=== PATIENT | female | born 1950 | race Caucasian/White ===

== ENCOUNTER 2017-06-18 20:22 | Emergency (ER) | payer MEDICARE, OTHER ==
[~2017-06-18] VITALS: Ht 157.5 cm; Wt 65.8 kg
--- NOTE | 2017-06-18 20:34 | ED General ---
General Stated Complaint: NAUSEA Source of Information: Patient Exam Limitations: No Limitations History of Present Illness Time Seen by Provider: 20:33 Initial Comments To ER on a road trip from [facility] to [facility]. She started this trip today feeling fine. EMS was returning from a transfer following this lady and noticed her to be swerving. She eventually pullled over and and paramedics checked her out and found her to be febrile at 101.9, tachycardic at 115, complaining of a severe headache, nausea, nasal congestion, cough, and sore throat. They then transported her here. She is otherwise healthy except for hypertension. She is about half way thru a course of Augmentin 875 for sinusitis and has not felt bad until this afternoon when she had a sudden onset of worsening of symptoms--nasal congestion, high fever, sore throat. . She did receive an influenza vaccine this year. Severity: Moderate Associated Systoms: Cough, Fever/Chills, Headaches Allergies and Home Medications Allergies Coded Allergies: No Known Drug Allergies (Unverified , 06/18/17) Constitutional: see HPI, chills, fever EENTM: see HPI, throat pain Respiratory: see HPI, cough Cardiovascular: no symptoms reported Genitourinary: no symptoms reported Musculoskeletal: no symptoms reported Skin: no symptoms reported Psychiatric/Neurological: See HPI, Headache Hematologic/Lymphatic: No Symptoms Reported Physical Exam Vital Signs Vital Sign - Last 12Hours 06/18/17 20:22 Temp 100.7 Pulse 110 Resp 20 B/P (MAP) 171/93 (119) Pulse Ox 99 O2 Delivery Room Air Capillary Refill : General Appearance: No Apparent Distress, WD/WN Eyes: Bilateral Eye Normal Inspection, Bilateral Eye PERRL, Bilateral Eye EOMI HEENT: PERRL/EOMI, TMs Normal, Normal ENT Inspection, Pharynx Normal Neck: Full Range of Motion, Normal Inspection Respiratory: Normal Breath Sounds, No Accessory Muscle Use, No Respiratory Distress Cardiovascular: Normal Peripheral Pulses, Tachycardia Gastrointestinal: Normal Bowel Sounds, Non Tender, Soft Extremity: Normal Capillary Refill, Normal Inspection Neurologic/Psychiatric: Alert, Oriented x3, No Motor/Sensory Deficits Skin: Normal Color, Warm/Dry Focused Exam Evaluation Lactate Level Laboratory Tests 06/18/17 20:29: Lactic Acid Level 0.91 Lactic Acid Level Laboratory Tests Test 06/18/17 20:29 Lactic Acid Level 0.91 MMOL/L (0.50-2.00) Progress/Results/Core Measures Suspected Sepsis SIRS Temperature: Pulse: Respiratory Rate: Laboratory Tests 06/18/17 20:29: White Blood Count 6.1 Blood Pressure / Mean: Laboratory Tests 06/18/17 20:29: Lactic Acid Level 0.91 Laboratory Tests 06/18/17 20:29: Creatinine 0.94, Platelet Count 172, Total Bilirubin 0.3 Results/Orders Lab Results Laboratory Tests Test 06/18/17 20:29 06/18/17 21:27 Range/Units White Blood Count 6.1 4.3-11.0 10^3/uL Red Blood Count 3.62 L 4.35-5.85 10^6/uL Hemoglobin 11.6 11.5-16.0 G/DL Hematocrit 34 L 35-52 % Mean Corpuscular Volume 93 80-99 FL Mean Corpuscular Hemoglobin 32 25-34 PG Mean Corpuscular Hemoglobin Concent 34 32-36 G/DL Red Cell Distribution Width 12.6 10.0-14.5 % Platelet Count 172 130-400 10^3/uL Mean Platelet Volume 10.2 7.4-10.4 FL Neutrophils (%) (Auto) 68 42-75 % Lymphocytes (%) (Auto) 6 L 12-44 % Monocytes (%) (Auto) 21 H 0-12 % Eosinophils (%) (Auto) 4 0-10 % Basophils (%) (Auto) 0 0-10 % Neutrophils # (Auto) 4.2 1.8-7.8 X 10^3 Lymphocytes # (Auto) 0.4 L 1.0-4.0 X 10^3 Monocytes # (Auto) 1.3 H 0.0-1.0 X 10^3 Eosinophils # (Auto) 0.2 0.0-0.3 10^3/uL Basophils # (Auto) 0.0 0.0-0.1 10^3/uL Neutrophils % (Manual) 64 % Lymphocytes % (Manual) 18 % Monocytes % (Manual) 3 % Eosinophils % (Manual) 9 % Basophils % (Manual) 2 % Band Neutrophils 0 % Reactive Lymphocytes 4 % Blood Morphology Comment NORMAL Sodium Level 136 135-145 MMOL/L Potassium Level 3.6 3.6-5.0 MMOL/L Chloride Level 102 98-107 MMOL/L Carbon Dioxide Level 24 21-32 MMOL/L Anion Gap 10 5-14 MMOL/L Blood Urea Nitrogen 14 7-18 MG/DL Creatinine 0.94 0.60-1.30 MG/DL Estimat Glomerular Filtration Rate 59 BUN/Creatinine Ratio 15 Glucose Level 123 H 70-105 MG/DL Lactic Acid Level 0.91 0.50-2.00 MMOL/L Calcium Level 8.9 8.5-10.1 MG/DL Total Bilirubin 0.3 0.1-1.0 MG/DL Aspartate Amino Transf (AST/SGOT) 17 5-34 U/L Alanine Aminotransferase (ALT/SGPT) 18 0-55 U/L Alkaline Phosphatase 79 40-136 U/L Troponin I < 0.30 <0.30 NG/ML Total Protein 6.7 6.4-8.2 GM/DL Albumin 4.1 3.2-4.5 GM/DL Urine Color YELLOW Urine Clarity CLEAR Urine pH 6 5-9 Urine Specific [place] 1.010 L 1.016-1.022 Urine Protein NEGATIVE NEGATIVE Urine Glucose (UA) NEGATIVE NEGATIVE Urine Ketones NEGATIVE NEGATIVE Urine Nitrite NEGATIVE NEGATIVE Urine Bilirubin NEGATIVE NEGATIVE Urine Urobilinogen NORMAL NORMAL MG/DL Urine Leukocyte Esterase NEGATIVE NEGATIVE Urine RBC (Auto) NEGATIVE NEGATIVE Urine RBC NONE /HPF Urine WBC RARE /HPF Urine Squamous Epithelial Cells 0-2 /HPF Urine Crystals NONE /LPF Urine Bacteria NEGATIVE /HPF Urine Casts NONE /LPF Urine Mucus NEGATIVE /LPF Urine Culture Indicated NO Micro Results Microbiology 06/18/17 Influenza Types A,B Antigen (YESENIA) - Final, Complete My Orders Orders - KARI ORTIZ [employer] Chest Pa/Lat (2 View) (06/18/17 20:31) Cbc With Automated Diff (06/18/17 20:31) Comprehensive Metabolic Panel (06/18/17 20:31) Troponin I (06/18/17 20:31) Blood Culture (06/18/17 20:31) Lactic Acid Analyzer (06/18/17 20:31) Influenza A And B Antigens (06/18/17 20:31) Saline Lock/Iv-Start (06/18/17 20:31) Clonidine Tablet (Catapres Tablet) (06/18/17 20:45) Ibuprofen Tablet (Motrin Tablet) (06/18/17 20:45) Ct Head Wo (06/18/17 20:32) Ondansetron Injection (Zofran Injectio (06/18/17 20:45) Ua Culture If Indicated (06/18/17 20:34) Manual Differential (06/18/17 20:29) Oxymetazoline 0.05% Nasal [place] (Afrin 0. (06/19/17 09:00) Rx-Ondansetron Po (Rx-Zofran Po) (06/18/17 21:27) Oseltamivir 75 Mg (10's) Caps (Tamiflu 7 (06/19/17 09:00) Medications Given in ED Current Medications Medications Dose Ordered Sig/Jayant Route Start Time Stop Time Status Last Admin Dose Admin Ibuprofen 800 mg ONCE ONCE PO 06/18/17 20:45 06/18/17 20:46 DC 06/18/17 20:46 800 MG Ondansetron HCl 4 mg ONCE ONCE IVP 06/18/17 20:45 06/18/17 20:46 DC 06/18/17 20:46 4 MG Vital Signs/I&O Vital Sign - Last 12Hours 06/18/17 20:22 Temp 100.7 Pulse 110 Resp 20 B/P (MAP) 171/93 (119) Pulse Ox 99 O2 Delivery Room Air Capillary Refill : Departure Communication (Admissions) Progress Notes NAME: EVELYN FREEMAN [facility] REC#: [id number] PT STATUS: REG ER : 1950 PHYSICIAN: KARI ORTIZ [employer] ADMIT DATE: 06/18/17/ER Draft Date of Exam:06/18/17 CT HEAD WO PROCEDURE: CT head without contrast. TECHNIQUE: Multiple contiguous axial images were obtained through the brain without the use of intravenous contrast. INDICATION: Fever and headache, sinus infections FINDINGS: There are no findings of focal or generalized cerebral edema. There is no hydrocephalus. There is no mass or mass effect. No hemorrhage or abnormal extra-axial fluid collection. Mastoid air cells and middle ear cavities clear. There is a shallow air-fluid level in the partially visualized right maxillary sinus with membrane thickening and opacification of multiple bilateral ethmoid air cells. Mild membrane thickening in the floor of the left frontal sinus. IMPRESSION: Paranasal sinusitis. No acute intracerebral pathology. Dictated on workstation # [id number] Dict: 06/18/172107 Trans: 06/18/172110 [facility] [id number] Interpreted by: ALEXSANDRA LORA Electronically signed by: Impression Impression: Primary Impression: Sinusitis Additional Impression: Influenza-like symptoms Disposition: 01 HOME, SELF-CARE Condition: Stable Departure-Patient Inst. Decision time for Depature: 21:43 Patient Instructions: Flu, Adult (DC), Sinusitis, Adult (DC) Add. Discharge Instructions: 1. Take the antibiotics as you have been 2. Nausea medication as needed 3. Return to ER for any worsening 4. Take Tamiflu as directed. [facility] Address: [address], [place] [address] [facility] Address: [address], [place] [address] KARI ORTIZ APRN Jun 18, 2017 20:33
[2017-06-18 20:39] LABS: BASOPHILS % (AUTO) 0 % (0-10); EOSINOPHILS # (AUTO) 0.2 10^3/uL (0.0-0.3); EOSINOPHILS % (AUTO) 4 % (0-10); LYMPHOCYTES # (AUTO) 0.4 X 10^3 (1.0-4.0); LYMPHOCYTES % (AUTO) 6 % (12-44); MEAN CORPUSCULAR HEMOGLOBIN 32 PG (25-34); MEAN CORPUSCULAR HGB CONC 34 G/DL (32-36); MEAN CORPUSCULAR VOLUME 93 FL (80-99); MEAN PLATELET VOLUME 10.2 FL (7.4-10.4); MONOCYTES # (AUTO) 1.3 X 10^3 (0.0-1.0); MONOCYTES % (AUTO) 21 % (0-12); NEUTROPHILS # (AUTO) 4.2 X 10^3 (1.8-7.8); NEUTROPHILS % (AUTO) 68 % (42-75); PLATELET COUNT 172 10^3/uL (130-400); RED BLOOD COUNT 3.62 10^6/uL (4.35-5.85); RED CELL DISTRIBUTION WIDTH 12.6 % (10.0-14.5); WHITE BLOOD COUNT 6.1 10^3/uL (4.3-11.0)
[2017-06-18] MEDS ORDERED: ONDANSETRON 4 MG/2 ML (SDV) Z0FRAN IVP ONE (20:45)
[2017-06-18] MEDS ORDERED: IBUPROFEN 800 MG (MOTRIN) TAB PO ONE (20:45)
[2017-06-18] MEDS ORDERED: cloNIDine 0.1 MG (CATAPRES) TAB PO ONE (20:45)
[2017-06-18 21:00] LABS: BAND NEUTROPHILS 0 %; BASOPHILS % (MANUAL) 2 %; EOSINOPHILS % (MANUAL) 9 %; LYMPHOCYTES % (MANUAL) 18 %; NEUTROPHILS % (MANUAL) 64 %; REACTIVE LYMPHOCYTES 4 %
[2017-06-18 21:05] LABS: ALANINE AMINOTRANSFERASE 18 U/L (0-55); ALBUMIN 4.1 GM/DL (3.2-4.5); ANION GAP 10 MMOL/L (5-14); ASPARTATE AMINO TRANSFERASE 17 U/L (5-34); BILIRUBIN,TOTAL 0.3 MG/DL (0.1-1.0); BLOOD UREA NITROGEN 14 MG/DL (7-18); BUN/CREATININE RATIO 15; CALCIUM 8.9 MG/DL (8.5-10.1); CARBON DIOXIDE 24 MMOL/L (21-32); CHLORIDE 102 MMOL/L (98-107); CREATININE SERUM 0.94 MG/DL (0.60-1.30); GFR ESTIMATED 59; GLUCOSE 123 MG/DL (70-105); POTASSIUM 3.6 MMOL/L (3.6-5.0); SODIUM 136 MMOL/L (135-145); TOTAL PROTEIN 6.7 GM/DL (6.4-8.2)
--- NOTE | 2017-06-18 21:07 | Diagnostic Imaging Report ---
INDICATION: Cough, nausea, stuffy nose. EXAMINATION: Two views of the chest were obtained. FINDINGS: The lungs are clear. The heart and vessels are normal. There is no effusion or pneumothorax. IMPRESSION: No acute appearing abnormality. Dictated by: Dictated on workstation # [id number]
[2017-06-18 21:11] LABS: TROPONIN I < 0.30 NG/ML (<0.30)
--- NOTE | 2017-06-18 21:12 | Diagnostic Imaging Report ---
PROCEDURE: CT head without contrast. TECHNIQUE: Multiple contiguous axial images were obtained through the brain without the use of intravenous contrast. INDICATION: Fever and headache, sinus infections FINDINGS: There are no findings of focal or generalized cerebral edema. There is no hydrocephalus. There is no mass or mass effect. No hemorrhage or abnormal extra-axial fluid collection. Mastoid air cells and middle ear cavities clear. There is a shallow air-fluid level in the partially visualized right maxillary sinus with membrane thickening and opacification of multiple bilateral ethmoid air cells. Mild membrane thickening in the floor of the left frontal sinus. IMPRESSION: Paranasal sinusitis. No acute intracerebral pathology. Dictated by: Dictated on workstation # [id number]
[2017-06-18] MEDS ORDERED: RX-ONDANSETRON 4 MG ODT (ZOFRAN) PPK #4 PO STA (21:27)
[2017-06-18 21:34] LABS: BILIRUBIN,URINE NEGATIVE (NEGATIVE); KETONES,URINE NEGATIVE (NEGATIVE); LEUKOCYTE ESTERASE ,URINE NEGATIVE (NEGATIVE); NITRITE,URINE NEGATIVE (NEGATIVE); PH,URINE 6 (5-9); PROTEIN,URINE NEGATIVE (NEGATIVE); UROBILINOGEN,URINE NORMAL (NORMAL)
[2017-06-18 21:40] LABS: SQUAMOUS EPITHELIAL CELL,UR 0-2 /HPF; WBC,URINE RARE /HPF
[2017-06-18] MEDS ORDERED: OXYMETAZOLINE (AFRIN) 0.05% NA 15 ML BTL ONE (21:49)
[2017-06-18] MEDS ORDERED: RX-OSELTAMIVIR 75 MG (TAMIFLU) BOX OF 10 PO ONE (21:49)
[2017-06-18 22:04] VITALS: BP 161/87
[2017-06-19] MEDS ORDERED: OXYMETAZOLINE (AFRIN) 0.05% NA 15 ML BTL SCH (09:00)
[2017-06-19] MEDS ORDERED: OSELTAMIVIR 75 MG (TAMIFLU) BOX OF 10 PO SCH (09:00)
== END 2017-06-18 22:04 | disposition home or self-care (01) ==
LOC: ER 20:26
DX: J32.9 Chronic sinusitis, unspecified (principal); J11.1 Influenza due to unidentified influenza virus with other respiratory manifestations
CPT/HCPCS: 36415; 70450; 71020; 80053; 81000; 83605; 84484; 85007; 85027; 87040; 87804